=== PATIENT | male | born 1970 | race African-American/Black ===

== ENCOUNTER 2020-06-07 20:06 | Emergency (ER) | payer BC, SELFPAY ==
--- NOTE | ~2020-06-07 | XR_ITS ---
[id number] 06/07/2020 21:11 Indication: Right arm numbness Procedure: 4 view cervical spine Comparison: No prior studies for comparison. Findings: There are degenerative changes at C5-6. No fracture or traumatic malalignment. No preverteb ral soft tissue swelling. Odontoid process within normal limits. Lung apices are normal. Impression: 1: No acute abnormality of the cervical spine. Reviewed, dictated and finalized at location A. 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
--- NOTE | ~2020-06-07 | CT_ITS ---
EXAMINATION: CT BRAIN W/O DATE: 06/07/2020 21:17 INDICATION: Right arm weakness TECHNIQUE: Computed tomography (CT) of the head was performed without intravenous contrast. The dose- length product was 605.33 mGy-cm. The mA was adjusted according to patient size. Iterative reconstruc tion technique was employed. COMPARISON: No prior studies for comparison. FINDINGS: Normal brain parenchymal volume for age. Normal kelly-white differentiation. No acute intrac ranial hemorrhage, infarction, mass or mass effect. No ventriculomegaly or midline shift. Midline sagittal images demonstrate a normal corpus callosum, c raniovertebral junction and sella turcica. Basilar cisterns are patent. There is mucosal thickening of the ethmoid, left frontal sinuses. Mastoids are pneumatized. IMPRESSION: 1. No acute intracranial abnormality. 2: Sinusitis. Reviewed, dictated and finalized at location A. D EFFECTS TECHNICIAN
--- NOTE | 2020-06-07 20:09 | ECG_ITS ---
Measurements Intervals [place] Rate: 61 P: 48 ID: 130 QRS: 31 QRSD: 98 T: 8 QT: 394 QTc: 397 Interpretive Statements SINUS RHYTHM POSSIBLE LEFT ATRIAL ENLARGEMENT INCOMPLETE RIGHT BUNDLE BRANCH BLOCK BORDERLINE ECG Electronically Signed On 06-08-2020 7:01:15 INVENTORY ASSOCIATE by Mikal Castillo D.O.
[2020-06-07 20:11] VITALS: BP 169/118; PULSE 68; RESP 17; TEMP 36.3; O2SAT 98
[2020-06-07 20:32] LABS: Basophils Absolute Auto 0.1 K/mm3 (0.0-0.1); Basophils Percent Auto 0.9 % (0.2-1.2); Eosinophils Absolute Auto 0.2 K/mm3 (0-0.3); Eosinophils Percent Auto 3.3 % (0-4.4); Hematocrit 41.6 % (42.0-52.0); Immature Granulocyte Absolute 0.01 K/mm3 (0.00-0.031); Immature Granulocyte Percent A 0.2 % (0-0.5); Lymphocytes Percent Auto 46.4 % (18.3-44.2); Mean Corpuscular HGB Conc 31.3 g/dl (32-36); Mean Corpuscular Hemoglobin 21.8 pg (26-34); Mean Corpuscular Volume 69.7 fl (80-100); Mean Platelet Volume 11.4 fl (7.4-10.4); Monocytes Absolute Auto 0.6 K/mm3 (0.1-0.6); Monocytes Percent Auto 10.3 % (2.6-8.5); Neutrophils Absolute Auto 2.3 K/mm3 (1.3-6.7); Neutrophils Percent Auto 38.9 % (45.5-73.1); Platelet Count Result 185 k/mm3 (150-375); Red Blood Count 5.97 M/mm3 (4.6-6.20); Red Cell Distribution Width 14.1 % (11.5-14.5); White Blood Count 5.8 K/mm3 (4.5-10.0)
[2020-06-07 20:44] LABS: Alanine Aminotransferase 27 U/L (4-50); Albumin Level 4.5 g/dL (3.5-5.1); Alkaline Phosphatase 56 U/L (38-126); Anion Gap 6 mmol/L (8-16); Aspartate Amino Transferase 25 U/L (17-59); Bilirubin,Total 0.7 mg/dL (0.2-1.3); Blood Urea Nitrogen 18 mg/dL (9-20); Calcium 9.7 mg/dL (8.4-10.2); Carbon Dioxide 32 mmol/L (22-30); Chloride 103 mmol/L (98-107); Estimated CRCL calculation 75 ml/min; Estimated Glomerular Filt Rate > 60; Glucose 94 mg/dL (75-110); Potassium 4.2 mmol/L (3.4-5.0); Sodium 141 mmol/L (137-145)
[2020-06-07 20:55] LABS: Troponin I < 0.012 ng/mL (0.000-0.034)
--- NOTE | 2020-06-07 21:04 | ED.GENADULT ---
HPI - General Adult General Chief complaint: Neuro Symptoms/Deficit Stated complaint: right arm numbness Time Seen by Provider: 06/07/20 20:33 Source: patient History of Present Illness HPI narrative: Patient is a 49 y/o male complaining of intermittent right arm pain and numbness for 1 week. He describes his pain as radiating. He states that his pain varies from 3-7/10. There is no alleviating or exacerbating factor. He also feels intermittent numbness. However, he denies any weakness. He is able to move his arms without difficulty. Related Data Home Medications Medication Instructions Recorded Confirmed atorvastatin 06/07/20 Allergies Allergy/AdvReac Type Severity Reaction Status Date / Time ibuprofen Allergy Unknown Difficulty Verified 06/07/20 20:16 Breathing Review of Systems Constitutional: Constitutional: Denies chills, Denies fever(s), Denies headache(s) and Denies weakness Eyes: Eyes: Denies blurry vision ENT: Denies headache(s) and Denies neck pain Cardiovascular: Cardiovascular: Denies chest pain and Denies dyspnea Respiratory: Respiratory: Denies cough and Denies dyspnea Gastrointestinal: Gastrointestinal: Denies abdominal pain, Denies diarrhea, Denies nausea and Denies vomiting Genitourinary: Genitourinary: Denies hematuria and Denies dysuria Musculoskeletal: Musculoskeletal: Denies back pain, Denies neck pain, Reports radiating pain into limb and Reports other (right arm pain) Neurologic: Reports as per HPI, Denies headache(s), Reports numbness and Denies weakness PMF Social History Social History Gender identity (if verbalized by the patient): Male Exam Const: General: no acute distress and well developed Orientation/consciousness: oriented to person, oriented to place, oriented to time and patient oriented x3 HENMT: Head: normocephalic Ears: external ears normal General nose exam: Normal external nose present Eyes: General: appearance normal, both eyes and all related structures Conjunctivae: conjunctivae normal Neck: Neck: normal visual inspection and full ROM Chest: Chest palpation & inspection: normal inspection of the chest and no tenderness Resp: Effort & Inspection: normal respiratory effort Auscultation: clear to auscultation bilaterally Cardio: Rate: regular rate Rhythm: regular rhythm GI: GI Palp: No abdominal tenderness and Yes Soft to palpation Skin: General skin exam: normal color and turgor normal Neuro: General: oriented to person, oriented to place, oriented to time and patient oriented x3 Cranial nerves: Yes CN's II-XII intact bilaterally Cognition (Neuro): normal cognition Speech: normal speech Motor exam (neuro): 5/5 motor strength present throughout Sensory Exam: normal sensation Coordination: [id number] test normal and [id number] test normal Extrem: General: normal to inspection, full ROM and no pedal edema Psych: Appearance: grossly normal Mental Status: mental status grossly normal Affect: normal affect Course Vital Signs Vital signs: Vital Signs Temperature 36.3 C L 06/07/20 20:11 Pulse Rate 68 06/07/20 20:11 Respiratory Rate 17 06/07/20 20:11 Blood Pressure 169/118 H 06/07/20 20:11 Pulse Oximetry 98 06/07/20 20:11 Temperature 36.6 C 06/07/20 23:31 Pulse Rate 64 06/07/20 23:31 Respiratory Rate 14 06/07/20 23:31 Blood Pressure 135/82 06/07/20 23:31 Pulse Oximetry 98 06/07/20 23:31 Medical Decision Making Vital Signs Vital Signs: Vital Signs Temperature 36.3 C L 06/07/20 20:11 Pulse Rate 68 06/07/20 20:11 Respiratory Rate 17 06/07/20 20:11 Blood Pressure 169/118 H 06/07/20 20:11 Pulse Oximetry 98 06/07/20 20:11 Temperature 36.6 C 06/07/20 23:31 Pulse Rate 64 06/07/20 23:31 Respiratory Rate 14 06/07/20 23:31 Blood Pressure 135/82 06/07/20 23:31 Pulse Oximetry 98 06/07/20 23:31 Lab Data
[2020-06-07 23:31] VITALS: BP 135/82; PULSE 64; RESP 14; TEMP 36.6; O2SAT 98
== END 2020-06-07 23:31 | disposition home or self-care (01) ==
PROVIDERS: Emergency Provider Emergency Medicine
DX: M54.12 Radiculopathy, cervical region (principal); I10 Essential (primary) hypertension
CPT/HCPCS: 36415; 70450; 72040; 80053; 84484; 85025; 93005; 99284